=== PATIENT | female | born 1940 | race Caucasian/White ===

== ENCOUNTER 2017-07-03 11:19 | Emergency (ER) | payer MEDICARE, BC ==
[~2017-07-03] VITALS: Ht 167.6 cm; Wt 47.4 kg
[~2017-07-03 11:19] MED LIST: ALPR.5 PO; BUPR100CR PO; DULO1CAP3 PO; GABA600T PO; LAMO200T PO; LEVO100T5 PO; NALO1TAB2 PO; OXYC-406 PO; OXYC1CAP PO; ZOLP5TAB3 PO
[2017-07-03 11:27] VITALS: BP 137/70; PULSE 94; RESP 16; TEMP 98; O2SAT 97
[2017-07-03] MEDS ORDERED: CARA1TAB6 PO (11:44)
[2017-07-03] MEDS ORDERED: ZOLP10TA3 PO (11:44)
[2017-07-03] MEDS ORDERED: BUSP15TA PO (11:44)
[2017-07-03] MEDS ORDERED: LAMO100T PO (11:44)
[2017-07-03] MEDS ORDERED: BUPR150CR PO (11:44)
[2017-07-03] MEDS ORDERED: L-MECAP2 (11:44)
[2017-07-03] MEDS ORDERED: PRIL20TA2 (11:44)
--- NOTE | 2017-07-03 12:50 | RADRPT ---
EXAM DATE/TIME: 07/03/2017 12:01 [place] COMPARISON: No previous studies available for comparison. INDICATIONS : Fell last night injuring right forehead. RADIATION DOSE: 61.24 CTDIvol (mGy) MEDICAL HISTORY : Hypothyroidism. ?TIA, Bipolar,Migraines SURGICAL HISTORY : Hysterectomy. Low back, 2 bowel surgeries. ENCOUNTER: Initial ACUITY: 1 day PAIN SCALE: 4/10 LOCATION: Right cranial TECHNIQUE: Multiple contiguous axial images were obtained of the head. Using automated exposure control and adj ustment of the mA and/or kV according to patient size, radiation dose was kept as low as reasonably a chievable to obtain optimal diagnostic quality images. DICOM format image data is available electro nically for review and comparison. FINDINGS: CEREBRUM: The ventricles are normal for age. No evidence of midline shift, mass lesion, hemorrhage or acute in farction. No extra-axial fluid collections are seen. POSTERIOR FOSSA: The cerebellum and brainstem are intact. The 4th ventricle is midline. The cerebellopontine angle i s unremarkable. EXTRACRANIAL: The visualized portion of the orbits is intact. SKULL: The calvaria is intact. No evidence of skull fracture. CONCLUSION: 1. No acute intracranial abnormalities. Willi Gtz MD on July 03, 2017 at 12:46 Board Certified Radiologist. This report was verified electronically.
--- NOTE | 2017-07-03 12:56 | PD ---
HPI Chief Complaint: Head Injury Time Seen by Provider: 11:44 Travel History International Travel<30 days: No Contact w/Intl Traveler<30days: No Traveled to known affect area: No History of Present Illness HPI 76-year-old female here for evaluation of head injury. She had a mechanical trip and fall last night injuring her head on the bathroom floor. There was no loss of consciousness. Patient is not anticoagulated. She reports she has a mild generalized headache. No visual changes. No neck pain, chest pain, shortness of breath, abdominal pain, paresthesia or weakness of the extremities. PFSH Past Medical History Hx Anticoagulant Therapy: No Anemia: Yes Arthritis: Yes Autoimmune Disease: No Blood Disorders: No Bipolar Disorder: Yes Anxiety: Yes Depression: Yes (bipolar ) Heart Rhythm Problems: No Cancer: No Cardiovascular Problems: No High Cholesterol: No Chemotherapy: No Chest Pain: No Congestive Heart Failure: No Cerebrovascular Accident: Yes (tia???) Diabetes: No Diminished Hearing: No Endocrine: No Gastrointestinal Disorders: Yes (for 12years since bowel surgery) GERD: Yes Genitourinary: Yes (frequency and hesitation) Headaches: Yes Hepatitis: No Hiatal Hernia: No Immune Disorder: No Insomnia: Yes Medical other: Yes (ANEMIA 2013 WITH TRANSFUSION (4-5 UNITS)) Musculoskeletal: Yes (arthritis) Neurologic: Yes (migraines) Psychiatric: Yes (bipolar, anxiety, panic attacks, depression) Reproductive: No Respiratory: No Migraines: Yes Radiation Therapy: No Seizures: No Thyroid Disease: Yes (hypothyroidism) Ulcer: Yes Influenza Vaccination: Yes ?: Not Menopausal: Yes Past Surgical History Abdominal Surgery: Yes (2 bowel sugeries) AICD: No Body Medical Devices: DENTAL IMPLANTS X 8 + FRANCISCO JAVIER LENS IMPLANTS Cardiac Surgery: No Ear Surgery: No Endocrine Surgery: No Eye Surgery: Yes (lens implants) Genitourinary Surgery: No Gynecologic Surgery: Yes (hysterectomy 1974) Hysterectomy: Yes Joint Replacement: No Neurologic Surgery: Yes (lower back.) Oral Surgery: No Pacemaker: No Thoracic Surgery: No Other Surgery: Yes (neck surgery 2014,back [id number], hysterectomy,bowel resection x2, dental) Social History Alcohol Use: No (former) Tobacco Use: Yes (e-cig) Substance Use: No Allergies-Medications (Allergen,Severity, Reaction): Coded Allergies: No Known Allergies (Unverified Adverse Reaction, Unknown, 07/03/17) Reported Meds & Prescriptions Reported Meds & Active Scripts Active Reported Carafate (Sucralfate) 1 Gram Tab 1 Gm PO TID On empty stomach Prilosec (Omeprazole Magnesium) 20 Mg Tab Buspirone (Buspirone HCl) 15 Mg Tab 15 Mg PO TID Deplin (k-Xuroyjgiovar-Izwgd) 15 Mg Cap Lamotrigine 100 Mg Tab 100 Mg PO HS Zolpidem (Zolpidem Tartrate) 10 Mg Tab 10 Mg PO HS PRN Wellbutrin SR 12 HR (Bupropion HCl) 150 Mg Tab 150 Mg PO Q12HR Xanax (Alprazolam) 0.5 Mg Tab 0.5 Mg PO QID PRN Oxycodone (Oxycodone HCl) 5 Mg Cap 5 Mg PO Q4H PRN Gabapentin 600 Mg Tab 600 Mg PO QID Levothyroxine (Levothyroxine Sodium) 100 Mcg Tab 100 Mcg PO DAILY Duloxetine DR (Duloxetine HCl) 60 Mg Capdr 60 Mg PO DAILY Oxycodone ER (Oxycodone HCl) 40 Mg Tab 40 Mg PO Q8HR Movantik (Naloxegol) 25 Mg Tab 25 Mg PO DAILY Lamotrigine 200 Mg Tab 200 Mg PO DAILY Review of Systems Except as stated in HPI: all other systems reviewed are Neg General / Constitutional: No: Fever Eyes: No: Visual changes HENT: No: Headaches Cardiovascular: No: Chest Pain or Discomfort Respiratory: No: Shortness of Breath Gastrointestinal: No: Abdominal Pain Genitourinary: No: Dysuria Physical Exam Narrative GENERAL: Alert and well-appearing 76-year-old female SKIN: Warm and dry. HEAD: Normocephalic. Small scalp hematoma with approximately 1 cm laceration with wound edges well approximated. No active bleeding. EYES: Pupils equal, round, reactive to light. EOMs intact. No injection or drainage. NECK: Supple, trachea midline. No cervical midline tenderness CARDIOVASCULAR: Regular rate and rhythm RESPIRATORY: Breath sounds equal bilaterally. No accessory muscle use. GASTROINTESTINAL: Abdomen soft, non-tender, nondistended. MUSCULOSKELETAL: No cyanosis, or edema. Normal strength and sensation in extremities. NEUROLOGICAL: Awake and alert. No obvious cranial nerve deficit. Motor and sensory grossly within normal limits. Five out of 5 muscle strength in all muscle groups. Normal speech. BACK: Nontender without obvious deformity. No CVA tenderness. Data Data Last Documented VS Vital Signs Date Time Temp Pulse Resp B/P (MAP) Pulse Ox O2 Delivery O2 Flow Rate FiO2 07/03/17 11:27 98.0 94 16 137/70 (92) [address] Brain W/O Iv Contrast(Rout) (07/03/17 ) Ed Discharge Order (07/03/17 12:57) MDM Medical Decision Making Medical Screen Exam Complete: Yes Emergency Medical Condition: Yes Differential Diagnosis Closed head injury, ICH, skull fracture, scalp hematoma Narrative Course 76-year-old female here for evaluation of head injury. She had a mechanical trip and fall last night injuring her head on the floor. There was no loss of consciousness. Patient is not anticoagulated. She has a normal neurologic exam. She has a small hematoma with well approximated nonbleeding laceration to the right parietal region. No midline neck pain. CT brain negative for abnormalities. Patient is stable and ready for discharge Diagnosis Primary Impression: Head injury Qualified Codes: S09.90XA - Unspecified injury of head, initial encounter Referrals: Primary Care Physician Additional Instructions: Follow-up with her primary doctor. Return to emergency department if new or worsening symptoms. Disposition: 01 DISCHARGE HOME Condition: Stable Khushboo Chacon Jul 03, 2017 12:56
== END 2017-07-03 13:47 | disposition home or self-care (01) ==
LOC: PHEFT 11:19
DX: S09.90XA Unspecified injury of head, initial encounter (principal); S00.03XA Contusion of scalp, initial encounter; D64.9 Anemia, unspecified; M19.90 Unspecified osteoarthritis, unspecified site; F31.9 Bipolar disorder, unspecified; F41.9 Anxiety disorder, unspecified; K21.9 Gastro-esophageal reflux disease without esophagitis; G47.00 Insomnia, unspecified; W01.0XXA Fall on same level from slipping, tripping and stumbling without subsequent striking against object, initial encounter
CPT/HCPCS: 70450; 99283